=== PATIENT | female | born 1950 | race Caucasian/White ===

== ENCOUNTER 2019-02-05 16:57 | Inpatient (IN) ==
--- NOTE | 2019-02-05 18:41 | PROVIDER DOCUMENTATION ---
HPI-General Adult - General Chief Complaint: Nausea/Vomiting Stated Complaint: ABD PAIN Time Seen by Provider: 02/05/19 18:14 Source: patient, family Allergies/Adverse Reactions: Patient Allergies Allergy/AdvReac Type Severity Reaction Status Date / Time codeine Allergy Severe RASH Verified 02/05/19 20:48 latex Allergy Severe ANAPHYLAXIS Verified 02/05/19 20:48 Sulfa (Sulfonamide Allergy Severe RASH Verified 02/05/19 20:48 Antibiotics) cephalexin monohydrate * Allergy Mild RASH Verified 02/05/19 20:48 [From Keflex] Penicillins Allergy Mild breathing, Verified 02/05/19 20:48 rash Iodinated Contrast Media Allergy Unknown Unknown Verified 02/05/19 20:48 ciprofloxacin [From Cipro] Allergy RASH Verified 02/05/19 20:48 ciprofloxacin HCl * Allergy RASH Verified 02/05/19 20:48 [From Cipro] erythromycin base Allergy RASH Verified 02/05/19 20:48 [Erythromycin Base] Iodine and Iodide Containing Allergy ANAPHYLAXIS Verified 02/05/19 20:48 Produc Home Medications: Home Medication List Medication Instructions Recorded Confirmed Last Taken Type Albuterol [Albuterol Neb] 2.5 mg INH Q4H 07/31/13 02/05/19 02/05/19 History Levothyroxine [Synthroid] 100 microgm PO QAM 07/31/13 02/05/19 02/05/19 History Montelukast [Singulair] 10 mg PO QAM 07/31/13 02/05/19 09/27/13 12:26 History Potassium Chloride 20 meq PO QAM 07/31/13 02/05/19 09/27/13 12:27 History Omeprazole [Prilosec] 40 mg PO QAM 09/12/13 02/05/19 09/27/13 12:27 History Apixaban [Eliquis] 5 mg PO BID #60 tablet 09/16/13 02/05/19 02/05/19 Rx Nitroglycerin 0.4 mg SL DIRECTED #30 tab.subl 09/27/13 02/05/19 Unknown Rx Fluoxetine HCl [Prozac] 20 mg PO DAILY 01/16/18 02/05/19 02/05/19 History Mometasone/Formoterol [Dulera 200 2 puff IH BID 01/16/18 02/05/19 Unknown History Mcg/5 Mcg Inhaler] Tizanidine HCl 4 mg PO QHS 01/16/18 02/05/19 Unknown History Acyclovir 5% Ointment [Zovirax 5 gm TOP 5XDAY PRN 02/05/19 02/05/19 02/05/19 History Ointment] Acyclovir [Zovirax] 400 mg PO DAILY 02/05/19 02/05/19 02/05/19 History Furosemide [Lasix] 40 mg PO BID 02/05/19 02/05/19 02/05/19 History Hydrocodone/Acetaminophen 1 ea PO Q8H 02/05/19 02/05/19 02/05/19 History [Hydrocodone-Acetamin 7.5-325] Ipratropium Guild Neb [Atrovent 0.5 mg INH RTQ4H 02/05/19 02/05/19 02/05/19 History Neb] Lorazepam 0.5 mg PO BID 02/05/19 02/05/19 02/05/19 History Metoprolol Tartrate 50 mg PO BID 02/05/19 02/05/19 Unknown History Sucralfate 1 gm PO 4XDAY 02/05/19 02/05/19 02/05/19 History Trazodone HCl 150 mg PO QHS 02/05/19 02/05/19 Unknown History - History of Present Illness -Gen Adult Nature of Presenting Problems: 68yo female presents from nursing facility with CC of nausea, vomiting, chest pain, and abdominal pain. The patient reports that she has noted abdominal and chest pain for the last 10 days. The patient describes the pain as a pressure w ith occasional radiation from her abdomen to chest and left arm. The patient is not worse with exertion and is relived by her opioid medications. The patient last BM was 2 days ago. Location of Pain/Injury: reports: chest, abdomen Pain Radiation: reports: other (right arm) Quality of Pain: reports: pressure Onset/Duration: reports: other (several weeks) Timing: reports: still present Associated Symptoms: reports: nausea, vomiting Review of Systems - Adult - REVIEW OF SYSTEMS - ADULT Constitutional: denies: fever Eyes: reports: no symptoms reported. denies: eye pain Ears, Nose, Mouth & Throat: reports: no symptoms reported. denies: throat pain Cardiovascular: reports: chest pain Respiratory: denies: cough, shortness of breath Gastrointestinal: reports: abdominal pain, constipation Genitourinary: reports: no symptoms reported Musculoskeletal: reports: other (right arm pain) Integumentary: reports: no symptoms reported Neurological: reports: no symptoms reported Psychiatric: reports: no symptoms reported Endocrine: reports: no symptoms reported Hematologic/Lymphatic: reports: no symptoms reported, other (no bleeding) Allergic/Immunologic: reports: no symptoms reported Past History - Adult - PAST MEDICAL HISTORY-ADULT Review of Records: reports: Old Records Reviewed Major Childhood Illnesses: reports: denies history Cardiovascular: reports: A-Fib, HTN Respiratory: reports: asthma, COPD (2 lpnc) Gastrointestinal: reports: denies history Obstetrical/Gynecological: reports: denies history Genitourinary: reports: denies history Musculoskeletal: reports: denies history Neurological: reports: denies history Endocrine/Immune: reports: thyroid disorder (hypothyroid) Other Conditions: reports: denies history - PRIOR SURGERIES/PROCEDURES Surgical/Procedure History: reports: cholecystectomy, , other (knee, back) - PRIOR HOSPITALIZATIONS Prior Hospitalizations: reports: none - IMMUNIZATION STATUS Childhood Immunizations: See Nurse Assessment Flu Vaccine: See Nurse Assessment - FAMILY HISTORY Family History: reviewed, not pertinent Physical Exam-General - PHYSICAL EXAM-ADULT Initial Vital Signs Reviewed: Yes - CONSTITUTIONAL General Appearance: alert, no apparent distress, obese - EYES Eyes: negative: conjuctival exudate, photophobia - HEAD, EARS, NOSE, MOUTH & THROAT HENMT: normocephalic/atraumatic, moist mucous membranes - RESPIRATORY Respiratory: lungs clear, decreased breath sounds - CARDIOVASCULAR Cardiovascular: regular rate, rhythm, no edema - GASTROINTESTINAL (ABDOMEN) Abdominal Exam: soft, tenderness. negative: guarding - SKIN Integumentary: normal color, warm/dry - NEUROLOGIC Neurologic: grossly normal - PSYCHIATRIC Psych/Mental Status: normal mood/affect, normal thought content, normal thought process Progress - PLAN OF CARE/RESULTS Progress/Plan/Lab Results: Vital Signs - 8 hr 02/05/19 17:05 Temperature 98.2 F Pulse Rate 61 Respiratory Rate 20 Blood Pressure 147/64 O2 Sat by Pulse Oximetry 99 Result Diagrams: 02/05/19 19:25 02/05/19 19:25 - REASSESSMENT Reassessment #1 Status: other (Mild improvment in pain with nitropaste. Patient reports that pain is still present. Will check CT abdomen. Patient EKG without signs of STEMI.) Reassessment #2 Status: other (CT without signifcant finding. Possible lower lobe PNA, however patient without cough or fever or shortness of breath, so doubt PNA. Discussed with hospitalist team. We will admit patient due to her chest pressure and risk factors for ACS.) - EKG 1 EKG Read and Signed by:: Oren Elder EKG Interpretation (*Must complete 3 of following elements*): Normal Rate: 63 Rhythm: sinus [place]: normal QRS: normal OK Interval: normal ST Wave: normal Comments: No injury current noted. Departure - Departure Date of Disposition Decision: 02/05/19 Time of Disposition Decision: 23:30 DIAGNOSIS: Chest pain Qualifiers: Chest pain type: unspecified Qualified Code(s): R07.9 - Chest pain, unspecified Abdominal pain Qualifiers: Abdominal location: generalized Qualified Code(s): R10.84 - Generalized abdominal pain Disposition: ADMITTED INPATIENT 09 Certified Medical Emergency: Emergent Condition: Fair Referrals and Follow-Ups: Dariel Castellano III, MD [Primary Care Provider] - - Critical Care Note This patient required my direct & personal management of CC.: No Attestation - Physician/ JESUSITA Attestation Patient care was provided by Advanced Practice Provider:: No The physician spent face to face time with patient:: Yes Advanced Practice Provider documentation review:: Supervising physician onsite and consulted in the evaluation and care of this patient. The physician did have a face to face encounter with the patient. - HEART Score HEART Score: History: Slightly Suspicious HEART Score: ECG: Non-Specific Repolarization Disturbance/LBBB/PM HEART Score: Age: > or = 65 Years HEART Score: Risk Factors for Atherosclerotic Disease: > or = 3 Risk Factors or History of Atherosclerotic Disease HEART Score: Troponin: < or = Normal Limit Total HEART Score:: 5
[2019-02-05] MEDS ORDERED: ZOFRAN IV ONE (18:45)
[2019-02-05] MEDS ORDERED: NS 500 ML IV ONE (18:46)
--- NOTE | 2019-02-05 19:07 | Diag Imaging Result Doc PS360 ---
EXAM: KUB ABDOMEN INDICATION: abdominal pain TECHNIQUE: 2 views COMPARISON: None. FINDINGS: There are unremarkable bowel gas and stool patterns. There is no obstructive bowel pattern. There is no evidence of large volume free abdominal gas. There are multiple metallic clips in the abdomen, especially in the right mid abdomen and right upper quadrant. An IVC filter is noted. IMPRESSION: No evidence of acute pathology by plain radiograph. Electronically signed by Dariel Stevenson 02/05/2019 7:05 PM
--- NOTE | 2019-02-05 19:08 | Diag Imaging Result Doc PS360 ---
EXAM: CHEST-1 VIEW INDICATION: chest pain TECHNIQUE: One view COMPARISON: 01/16/2018 FINDINGS: There is no stable mild cardiomegaly. Pulmonary vasculature is near the upper limit of normal and stable. The lungs are grossly clear, otherwise. There is no discrete pleural fluid collection or pneumothorax. There is evidence of a stable small to moderate-sized hiatal hernia. IMPRESSION: Stable mild cardiomegaly. No definite acute pathology by plain radiograph. Electronically signed by Dariel Stevenson 02/05/2019 7:06 PM
[2019-02-05 19:42] LABS: BASO# 0.01 X1000 (0.0-0.2); BASO% 0.1 % (0.0-0.8); EOS# 0.08 X1000 (0.0-0.7); EOS% 0.6 % (0.0-10.0); HEMATOCRIT 39.2 % (37.0-47.0); HEMOGLOBIN 11.5 g/dL (12.0-16.0); IMM GRAN# 0.03 X1000 (0.0-0.04); IMM GRAN% 0.2 % (0.0-0.5); LYMPH# 1.58 X1000 (1.2-3.4); LYMPH% 12.4 % (20.5-51.1); MCH 23.2 PG (27-31); MCHC 29.3 g/dL (33-37); MONO# 1.35 X1000 (0.11-0.59); MONO% 10.6 % (1.7-9.3); MPV 9.8 FL (7.4-10.4); NEUT# 9.68 X1000 (1.4-6.5); NEUT% 76.1 % (42.2-75.2); PLT 355 X1000 (130-400); RBC 4.96 XMIL (4.2-5.4); RDW 18.5 % (11.5-14.5); WBC 12.73 X1000 (4.8-10.8)
[2019-02-05] MEDS ORDERED: NITROGLYCERIN TOP ONE (19:47)
[2019-02-05 20:12] LABS: ALB/GLOB RATIO 1.4; ALBUMIN 4.1 g/dL (3.5-5.0); CALCIUM 7.9 mg/dL (8.8-10.2); CREATININE 1.1 mg/dL (0.5-0.9); POTASSIUM 3.8 mmol/L (3.5-5.1); TOTAL BILIRUBIN 0.43 mg/dL (0.20-1.00)
[2019-02-05 20:16] LABS: URINE SOURCE CLEAN CATCH
[2019-02-05 20:32] LABS: UR EPITHELIAL CELLS <10 /HPF (<10); URINE BACTERIA NEGATIVE /HPF; URINE RBC <10 /HPF (<10); URINE WBC <10 /HPF (<10)
[2019-02-05 20:40] LABS: BILIRUBIN URINE SMALL (NEGATIVE); BLOOD URINE SMALL (NEGATIVE); COLOR YELLOW; GLUCOSE URINE NEGATIVE (NEGATIVE); KETONE URINE TRACE mg/dL (NEGATIVE); LEUKOCYTES URINE NEGATIVE (NEGATIVE); NITRITE URINE NEGATIVE (NEGATIVE); PROTEIN URINE 50 mg/dL (NEGATIVE); SP GRAVITY URINE 1.038; TURBIDITY URINE CLEAR (CLEAR); UROBILINOGEN URINE 2 mg/dL (NORMAL)
[2019-02-05] MEDS ORDERED: MORPHINE IV ONE (20:49)
--- NOTE | 2019-02-05 21:05 | EKG Report ---
Test Performed on : 02/05/2019 7:57:29 PM Test Reason : chest pressure Blood Pressure : / mmHG Vent. Rate : 063 BPM Atrial Rate : 063 BPM P-R Int : 182 ms QRS Dur : 076 ms QT Int : 454 ms P-R-T Axes : 068 075 072 degrees QTc Int : 464 ms Normal sinus rhythm. Cannot rule out Anterior infarct , age undetermined Abnormal ECG When compared with ECG of 27-SEP-2013 16:56, Non-specific change in ST segment in Lateral leads T wave inversion no longer evident in Inferior leads Unconfirmed Result
--- NOTE | 2019-02-05 21:32 | Diag Imaging Result Doc PS360 ---
EXAM: CT ABDOMEN/PELVIS W/O CONTRAST INDICATION: Abdominal Pain TECHNIQUE: This exam was performed using automated exposure control, adjustment of mA or kV according to patient size, and/or use of iterative reconstruction technique. COMPARISON: None. FINDINGS: There are small focal infiltrates involving the medial right middle lobe near the base and the right lower lobe. The common bile duct is dilated measuring up to 1.6 cm in diameter. The gallbladder is unremarkable. The liver and spleen are unremarkable. The pancreas is diffusely atrophic. It is grossly unremarkable, otherwise. The adrenal glands are unremarkable. There are no renal or ureteral stones and there is no hydronephrosis. The kidneys are unremarkable, otherwise. Urinary bladder is nondistended. Streak artifact related to body habitus somewhat obscures the pelvis. However, there is a 2.5 cm low dense left ovarian lesion that probably represents a cyst. Consider follow-up pelvic ultrasound. The reproductive tract is grossly unremarkable as imaged, otherwise. There is extensive uncomplicated descending and sigmoid colonic diverticulosis. There is no focal bowel wall thickening identified and no bowel obstruction. There is a moderate-sized hiatal hernia and evidence of prior gastric bypass. An IVC filter is in place. No focal inflammatory changes, free abdominal gas, or free fluid is appreciated. There are degenerative changes throughout the spine. There is no evidence of acute osseous abnormality. IMPRESSION: 1.A couple of airspace opacities in the right middle lobe and right lower lobe suggesting pneumonia. Please correlate clinically. 2.Dilated common bile duct. The gallbladder is unremarkable. 3.2.5 cm low dense left ovarian lesion that probably represents a cyst. Please see above discussion. 4.Uncomplicated diverticulosis coli. 5.No definite acute pathology, otherwise. Electronically signed by Dariel Stevenson 02/05/2019 9:30 PM
[2019-02-06] MEDS ORDERED: LEVAQUIN 750 MG/D5W 750 MG/150 ML IVPB IV ONE (00:12)
[2019-02-06] MEDS: ALBUTEROL NEB INH SCH ×6 (03:50→22:52)
[2019-02-06] MEDS: NORCO-7.5 PO SCH ×3 (04:12→21:37)
[2019-02-06] MEDS: LEVAQUIN 500 MG/D5W 500 MG/100 ML IVPB IV SCH (04:12)
--- NOTE | 2019-02-06 05:55 | HISTORY AND PHYSICAL ---
PRIMARY CARE PHYSICIAN: None. CHIEF COMPLAINT: Chest pain x10 days. HISTORY OF PRESENTING ILLNESS: A 68-year-old female with a history of COPD, asthma, hypertension, atrial fibrillation, sleep apnea, and hypothyroidism who was brought from [facility] due to patient having chest pain for the past 10 days or so. The patient states that it was intermittent, and she was having shortness of breath. She was evaluated in the emergency department. She had imaging done which did show possibility of pneumonia. Due to the fact that she was having a persistent chest pain, it was thought that she would need admission for further management. At the time of my examination, patient denied any headache, nausea, vomiting, diarrhea, hemoptysis, or melena, but complained of chest discomfort and shortness of breath. PAST MEDICAL HISTORY: Includes COPD, asthma, hypertension, atrial fibrillation, sleep apnea, and hypothyroidism. PAST SURGICAL HISTORY: Gastric bypass, back surgery, right knee surgery, and cholecystectomy. ALLERGIES: Erythromycin, iodine, IV contrast media, Cipro, codeine, penicillin and sulfa. CURRENT MEDICATIONS: 1. Acyclovir 400 mg p.o. daily. 2. Acyclovir ointment topical 5 times a day. 3. Albuterol nebs. 4. Eliquis 5 mg p.o. b.i.d. 5. Fluoxetine 20 mg p.o. daily. 6. Lasix 40 mg p.o. daily. 7. [place] 7.5 mg p.o. q.8 hours. 8. Levothyroxine 100 mcg p.o. every morning. 9. Lorazepam 0.5 mg p.o. b.i.d. 10. Metoprolol 50 mg p.o. b.i.d. 11. Singular 10 mg p.o. every morning. 12. Omeprazole 40 mg p.o. every morning. 13. Sucralfate 1 g p.o. q.i.d. 14. Trazodone 150 mg p.o. at bedtime. SOCIAL HISTORY: She denies any history of smoking, alcohol or illicit drug use. FAMILY HISTORY: Positive for coronary disease in father. REVIEW OF SYSTEMS: Fourteen point review of systems is as in HPI. Other systems negative. PHYSICAL EXAMINATION: GENERAL: Cooperative, friendly female. She is resting more comfortably now. VITAL SIGNS: Temperature 98.2 degrees, pulse 61, respirations 20, and blood pressure 147/64. HEENT: Atraumatic, normocephalic. Extraocular movements intact. PERRLA. NECK: No masses. CHEST: Bibasilar rales. CARDIOVASCULAR: Regular rate and rhythm. ABDOMEN: Soft, obese. Positive bowel sounds. EXTREMITIES: Trace edema. NEUROLOGIC: She is awake, alert, and oriented x3. : No bladder distention. SKIN: Warm. LABORATORIES AND STUDIES: WBC 12.73, hemoglobin 11.5, hematocrit 39.2 and platelets 355,000. Sodium 137, potassium 3.8, chloride 95, CO2 is 30, BUN is 15, creatinine is 1.1, and glucose is 118. CT of the abdomen and pelvis shows right middle lobe and right lower lobe pneumonia. ASSESSMENT: This is a 68-year-old female with a history of COPD, asthma, atrial fibrillation, sleep apnea and hypothyroidism, who had presented to the emergency department with 10 days history of having worsening chest discomfort and shortness of breath. She was evaluated in the emergency department. She had imaging done which did show the possibility of pneumonia. Subsequently, she will require admission for further management. 1. Suspected pneumonia. 2. Chest pain. 3. Atrial fibrillation. 4. Hypertension. PLAN: 1. We will admit patient to medical floor with telemetry. 2. We will check blood cultures. Start patient on IV antibiotics. 3. We will continue to trend troponins and consult Cardiology. 4. Monitor patient on telemetry and continue her anticoagulation. 5. Monitor blood pressure. Resume antihypertensive agents. 6. The patient is already on Eliquis, and this will suffice for DVT prophylaxis. 7. We will continue to follow and reassess. Make further recommendations based on patient's clinical course. cc: Orlin Holguin MD
[2019-02-06 06:31] LABS: BASO# 0.01 X1000 (0.0-0.2); BASO% 0.1 % (0.0-0.8); EOS# 0.05 X1000 (0.0-0.7); EOS% 0.5 % (0.0-10.0); HEMATOCRIT 39.8 % (37.0-47.0); HEMOGLOBIN 11.8 g/dL (12.0-16.0); IMM GRAN# 0.02 X1000 (0.0-0.04); IMM GRAN% 0.2 % (0.0-0.5); LYMPH# 0.99 X1000 (1.2-3.4); MCH 23.6 PG (27-31); MCHC 29.6 g/dL (33-37); MCV 79.4 FL (81-99); MONO# 1.08 X1000 (0.11-0.59); MONO% 9.8 % (1.7-9.3); MPV 10.1 FL (7.4-10.4); NEUT# 8.87 X1000 (1.4-6.5); NEUT% 80.4 % (42.2-75.2); PLT 319 X1000 (130-400); RBC 5.01 XMIL (4.2-5.4); RDW 18.4 % (11.5-14.5); WBC 11.02 X1000 (4.8-10.8)
[2019-02-06] MEDS: SYNTHROID PO SCH (06:35)
[2019-02-06 06:52] LABS: AGAP 11; BUN 14 mg/dL (8-22); CALCIUM 8.7 mg/dL (8.8-10.2); CHLORIDE 95 mmol/L (98-107); COSMO 266; CREATININE 0.9 mg/dL (0.5-0.9); ESTIMATED GFR > 60; GLUCOSE 120 mg/dL (70-104); SODIUM 132 mmol/L (136-145); TCO2 26 mmol/L (25-35)
[2019-02-06] MEDS: PRILOSEC PO SCH (08:27)
[2019-02-06] MEDS: LASIX PO SCH ×2 (08:27→21:37)
[2019-02-06] MEDS: ATIVAN PO SCH ×2 (08:27→21:38)
[2019-02-06] MEDS: LOPRESSOR PO SCH ×2 (08:27→21:37)
[2019-02-06] MEDS: PROZAC PO SCH (08:28)
[2019-02-06] MEDS: ZOVIRAX PO SCH (08:28)
[2019-02-06] MEDS: ELIQUIS PO SCH ×2 (08:28→21:37)
[2019-02-06] MEDS: SINGULAIR PO SCH (08:28)
[2019-02-06] MEDS: CARAFATE PO SCH ×4 (08:28→21:38)
--- NOTE | 2019-02-06 11:07 | EKG Report ---
Test Performed on : 02/06/2019 11:03:20 AM Test Reason : chest pain Blood Pressure : / mmHG Vent. Rate : 106 BPM Atrial Rate : 125 BPM P-R Int : 000 ms QRS Dur : 072 ms QT Int : 370 ms P-R-T Axes : 000 071 013 degrees QTc Int : 491 ms Atrial fibrillation. with rapid ventricular response. Abnormal ECG When compared with ECG of 05-FEB-2019 19:57, (Unconfirmed) Atrial fibrillation. has replaced Sinus rhythm. Vent. rate has increased BY 43 BPM T wave inversion now evident in Inferior leads Confirmed by Ryan Azul MD ([id number]) on 02/07/2019 7:31:55 AM
--- NOTE | 2019-02-06 11:32 | Diag Imaging Result Doc PS360 ---
CT THORAX W/O CONTRAST - 02/06/2019 INDICATION: suspected pneumonia COMPARISON: Chest x-ray 02/05/2019 FINDINGS: There is mild cardiomegaly. There is a hiatal hernia. There are surgical changes to the stomach. No pneumothorax or pleural effusion. There is mild diffuse mediastinal lymphadenopathy that is nonspecific. Large calcified granulomas in the AP window. There is mild diffuse hazy groundglass interstitial opacity suggesting pulmonary edema. There are couple of coarse opacities in the midlungs bilaterally most likely atelectasis. Small infiltrate in the anterior right middle lobe is either atelectasis or pneumonia. There are moderate degenerative changes of the spine. No acute or suspicious bony lesion. IMPRESSION: Cardiomegaly and trace interstitial pulmonary edema. Scattered atelectasis. Atelectasis versus bronchopneumonia in the right middle lobe. This exam was performed using automated exposure control, adjustment of mA or kV according to patient size, and/or use of iterative reconstruction technique Electronically signed by Skip Parisi 02/06/2019 11:29 AM
--- NOTE | 2019-02-06 12:12 | CARDIOLOGY CONSULTATION ---
DATE: 02/06/2019 REQUESTING PHYSICIAN: Hospitalist Service. REASON FOR CONSULTATION: Chest pain. HISTORY: Mrs. 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 The patient said that her pain seems to start after eating within 10 minutes. It hurts in the front of the chest intensely, and then it seems to move through into the back. She feels like a "tight bra" around. This pain has been intermittent, however it has not completely subsided. She says that it seems to be made somewhat better by taking a muscle relaxant and a narcotic. The patient denies having any dizziness or shortness of breath. She has some palpitations. PAST MEDICAL HISTORY: Positive for paroxysmal atrial fibrillation. She has had this for years, and she follows with Dr. Jorge Luis Dimas offset platemaker in [place]. Recently, she saw Dr. Kole Bartlett in [place] who did not recommend ablation nor pacemaker. He only advised her to pursue medical therapy. The patient has been morbidly obese for many years. She reached a weight of 370 pounds, and eventually underwent gastric bypass and lost she says 170 pounds, but lately she has gained weight progressively. She was admitted to a skilled nursing about a year ago because she was very weak, and she could not take care of herself at home. She has a twin sister, a fraternal twin who is in the room with her, who had been caring for her for many years. The patient has a history of hypertension and hypothyroidism. She has had asthma in the past. She has chronic back pain, and chronic pain in the joints, especially the knees. PAST SURGICAL HISTORY: Includes gastric bypass in 2012. She has also had partial knee surgery on the right knee. She has had . She has had cholecystectomy.Several Back Surgeries. SOCIAL HISTORY: She is a . She is also from the second . She has 1 child who is a son 34 years old who in turn has 4 children. He cannot participate in the care of the mother. Not a smoker nor drinker. She has held multiple jobs in the past. However, she had to retire on disability at the age of 45. FAMILY HISTORY: Really non contributory for heart disease. HOME MEDICATIONS: detention medications list included apixaban Eliquis 5 mg twice a day, Prozac 20 mg daily, furosemide 40 twice a day, hydrocodone/acetaminophen 7.5/325 every 8 hours, levothyroxine 100 mcg daily, lorazepam 0.5 mg twice a day, metoprolol 50 twice a day, montelukast 10 mg in the morning, nitroglycerin sublingual as needed, omeprazole 40 mg in the morning, potassium chloride 20 mEq in the morning, sucralfate 1 g 4 times a day, Tizanidine 4 mg at bedtime, trazodone 150 mg at bedtime. She also takes acyclovir 400 mg daily, albuterol inhaler, ipratropium inhaler, and mometasone formoterol, Dulera 200 mcg/5 mcg inhaler 2 puffs twice a day. ALLERGIES: Latex, codeine, sulfa drugs, cephalexin, iodine contrast, ciprofloxacin and erythromycin. REVIEW OF SYSTEMS: The patient has significant impairment to perform physical activities. She spends most of the time sitting or lying down in bed. She does have a sleep apnea syndrome, and she has been using CPAP mask. She does have a history of having esophageal ulcers related to the gastric bypass. She also has constipation, and has been told that she was impacted recently. No other positives. PHYSICAL EXAMINATION: Vital Signs: Blood pressure 143/61, temperature 98 degrees, pulse 97, respirations 16. She is awake, obese, and in no distress. HEENT: Normal. Chest: Clear to auscultation and percussion. Heart: Sounds are irregularly irregular. No gallop or murmur. Abdomen: Quite obese and nontender. Extremities: Good distal pulses. No edema. She has tremendous subcutaneous pannus everywhere. Neurological: Exam follows commands and moves all 4 extremities. LABORATORY: Her blood work this morning, white cell count 11,020, hemoglobin 11.8 g percent, and hematocrit 39.8%. Sodium 132, potassium 4.0, BUN 14, creatinine 0.9, chloride 95, carbon dioxide 26, and TSH 0.32. IMPRESSION: 1. Patient presented with chest pain. This chest pains really sounds quite atypical. This does not sound like ischemic heart pain. Her EKG done at 7:57 on 02/05 shows sinus rhythm with no ischemic STT changes. They have only done a couple of troponins. They are negative. 2. History of gastric bypass. Pain is suspected to represent esophageal dysfunction or ulcer. 3. Morbid obesity. 4. Sleep apnea syndrome. 5. History of paroxysmal atrial fibrillation. 6. History of hypertension. 7. History of back arthritis and knee arthritis. She is status post several back surgeries. RECOMMENDATIONS: At this time, we will obtain an echocardiogram. We will do a resting gated myocardial perfusion study. I would do CT of thorax looking for coronary calcification. If those tests are normal, we will really need to get a hatchery attendant here to help figure out what is going on with her esophagus. We will furnish additional advice. cc: Luis Naranjo MD MTDD
--- NOTE | 2019-02-06 18:16 | ECHO REPORT ---
ORDER DATE: 02/06/2019 SUMMARY: 1. Limited 2 dimensional echocardiography performed. Study is technically difficult due to limited acoustic window quality. Intravenous echo contrast agent Optison was utilized in an effort to enhance endocardial definition. 2. Normal left ventricular dimensions suggested. The estimated left ventricular ejection fraction appears to be at least 65%. No obvious regional wall motion abnormalities are evident. CONCLUSIONS: 1. Technically difficult study. 2. Estimated left ventricular ejection fraction at least 65% without obvious wall motion abnormality. cc: MD Carie Goemz PA
[2019-02-06] MEDS: DESYREL PO SCH (21:37)
[2019-02-07] MEDS: LEVAQUIN 500 MG/D5W 500 MG/100 ML IVPB IV SCH (01:29)
[2019-02-07] MEDS: ALBUTEROL NEB INH SCH ×3 (03:35→11:39)
[2019-02-07] MEDS: NORCO-7.5 PO SCH ×4 (05:03→22:31)
[2019-02-07] MEDS: SYNTHROID PO SCH (06:31)
[2019-02-07] MEDS ORDERED: LEXISCAN ONE (09:06)
[2019-02-07] MEDS: PRILOSEC PO SCH (11:00)
[2019-02-07] MEDS: CARAFATE PO SCH ×4 (11:01→22:13)
[2019-02-07] MEDS: ELIQUIS PO SCH ×2 (11:01→22:14)
[2019-02-07] MEDS: LASIX PO SCH ×2 (11:01→22:18)
[2019-02-07] MEDS: PROZAC PO SCH (11:01)
[2019-02-07] MEDS: SINGULAIR PO SCH (11:01)
[2019-02-07] MEDS: ZOVIRAX PO SCH (11:01)
[2019-02-07] MEDS: ATIVAN PO SCH ×2 (11:01→22:19)
[2019-02-07] MEDS: LOPRESSOR PO SCH ×2 (11:01→22:16)
[2019-02-07 12:24] LABS: BASO# 0.01 X1000 (0.0-0.2); BASO% 0.1 % (0.0-0.8); EOS# 0.07 X1000 (0.0-0.7); EOS% 0.5 % (0.0-10.0); HEMATOCRIT 44.1 % (37.0-47.0); HEMOGLOBIN 13.3 g/dL (12.0-16.0); IMM GRAN# 0.04 X1000 (0.0-0.04); IMM GRAN% 0.3 % (0.0-0.5); LYMPH# 0.98 X1000 (1.2-3.4); LYMPH% 7.3 % (20.5-51.1); MCH 23.5 PG (27-31); MCHC 30.2 g/dL (33-37); MCV 78.1 FL (81-99); MONO# 1.47 X1000 (0.11-0.59); MPV 9.9 FL (7.4-10.4); NEUT# 10.81 X1000 (1.4-6.5); NEUT% 80.8 % (42.2-75.2); PLT 366 X1000 (130-400); RBC 5.65 XMIL (4.2-5.4); RDW 18.4 % (11.5-14.5); WBC 13.38 X1000 (4.8-10.8)
[2019-02-07 12:41] LABS: AGAP 13; BUN 9 mg/dL (8-22); CALCIUM 8.5 mg/dL (8.8-10.2); CHLORIDE 96 mmol/L (98-107); COSMO 270; CREATININE 0.8 mg/dL (0.5-0.9); ESTIMATED GFR > 60; GLUCOSE 112 mg/dL (70-104); SODIUM 135 mmol/L (136-145); TCO2 26 mmol/L (25-35)
[2019-02-07] MEDS ORDERED: NS NEB INH SCH (13:15)
[2019-02-07] MEDS: ZANAFLEX PO SCH ×2 (13:20→16:26)
--- NOTE | 2019-02-07 14:15 | PROGRESS NOTE ---
DATE: 02/07/2019 SUBJECTIVE: The patient reports feeling fine. Reports mild epigastric pain. No nausea or vomiting at this time. OBJECTIVE: Vital Signs: Temperature 98.0 degrees, heart rate 82, respiratory rate 20, blood pressure 157/90, O2 saturation 98% on 2 L nasal cannula. General: This is a morbidly obese, 68- year-old, female, lying in bed in no acute distress. Cardiovascular: S1, S2 heard. No murmurs, gallops, or rubs. Regular rate and rhythm. Respiratory: Clear bilaterally to auscultation with minimal rales in both bases. The patient is not using any accessory muscles or having work of breathing. Abdomen: Soft. Mildly tender to palpation in the epigastric area. No signs of rebound. Neurologic: The patient is alert and oriented x3. Moves all 4 extremities. IMAGING AND LABORATORY DATA: White cell count 13.38, hemoglobin 13.3, platelets 366,000. Normal BMP. CT of the chest showed bronchopneumonia of the right middle lobe. Echocardiogram, limited views, showed left ventricular ejection fraction of 65%. No obvious wall motion abnormality. ASSESSMENT: 1. Chest pain. Cardiology has evaluated this patient, and they have ordered a Lexiscan and an echocardiogram. If Lexiscan is okay, they recommend Gastroenterology evaluation for this epigastric pain. 2. Right lower lobe bronchopneumonia. Will continue with antibiotics, in this case levofloxacin. 3. Atrial fibrillation. Rate controlled. Will continue to monitor. 4. Epigastric pain. The patient has been seen by Gastroenterology doctor before, Dr. Valentino. Will consult Gastroenterology and see what they think. 5. Hypertension. Blood pressure is under control. Will continue with the same management. cc: Misbah Page MD
[2019-02-07] MEDS: XOPENEX NEB INH SCH ×3 (15:49→23:10)
--- NOTE | 2019-02-07 16:32 | Diag Imaging Result Document ---
PROCEDURE NAME: MYOCARDIAL PERF SCAN, STR/REST - 02/06/2019 STUDY: Rest/stress Lexiscan myocardial perfusion study. INDICATION: Chest pain. DESCRIPTION: The patient came into the nuclear laboratory on 02/06/2019, received resting injection of technetium 99 sestamibi 45.8 mCi. Multiple tomographic views of the cardiac structures were obtained at rest. Subsequently, a Lexiscan stress test was done on 02/07/2019. At that time, she received an injection of technetium 99 sestamibi 42.3 mCi after 0.4 mg of Lexiscan. Multiple views of the heart were obtained following the completion of the Lexiscan protocol. SUMMARY OF THE ELECTROCARDIOGRAPHIC PORTION OF THE STUDY: Resting ECG shows atrial fibrillation, resting rate is 132 beats per minute. Rapid response is noted. There is diffuse nonspecific T wave flattening. During the protocol, the heart rate increased to 150 beats per minute. Blood pressure went up to 150/95. The ECG showed no significant changes. Following the completion of the test, the heart rate and blood pressure returned back to their baseline. In summary, the electrocardiographic response to infusion of Lexiscan is negative for ischemia. The patient has atrial fibrillation with rapid response. SUMMARY OF THE MYOCARDIAL PERFUSION PORTION OF THE STUDY: Poststress tomographic views of the left ventricle showed a relatively mild and focal basal inferolateral defect. The rest images suggest reversibility of this defect. Polar plots reveal the same. This is questionable inducible ischemia of the basal inferolateral portion of the left ventricle. The review of the rotating/raw images showed there is a large amount of soft tissue shadowing the cardiac silhouette, both on the stress and on the rest images. The attenuation appears to be somewhat different between both. The aforementioned finding is very consistent with shifting breast attenuation artifact. Gated SPECT on the rest images showed ejection fraction of 71%, poststress is the same, 71%. Using the alternative protocol, resting ejection fraction is 66% and poststress 74%. Lung/heart ratio is normal. TID is normal. SUMMARY: This study shows: 1. Abnormal resting electrocardiogram with atrial fibrillation with rapid response. 2. Borderline abnormal poststress myocardial perfusion scan. There is scintigraphic suggestion of very trivial degree of inducible ischemia in the basal inferolateral portion of the left ventricle. This is very suspicious to represent shifting breast attenuation artifact. 3. Preserved left ventricular systolic function with ejection fraction of 71%. Normal ventricular volumes. No wall motion abnormality. Clinical correlation is recommended. cc: Luis Naranjo MD
[2019-02-07] MEDS: CARDIZEM PO SCH ×2 (17:18→22:18)
[2019-02-07] MEDS: DESYREL PO SCH (22:18)
[2019-02-08] MEDS: LEVAQUIN 500 MG/D5W 500 MG/100 ML IVPB IV SCH (03:30)
[2019-02-08] MEDS: XOPENEX NEB INH SCH ×6 (03:34→23:50)
[2019-02-08] MEDS: CARDIZEM PO SCH ×3 (04:36→21:47)
[2019-02-08] MEDS: NORCO-7.5 PO SCH ×4 (04:38→21:44)
[2019-02-08] MEDS: SYNTHROID PO SCH (06:02)
[2019-02-08 07:26] LABS: BASO# 0.01 X1000 (0.0-0.2); BASO% 0.1 % (0.0-0.8); EOS# 0.31 X1000 (0.0-0.7); EOS% 3.1 % (0.0-10.0); HEMATOCRIT 40.9 % (37.0-47.0); HEMOGLOBIN 12.2 g/dL (12.0-16.0); IMM GRAN# 0.02 X1000 (0.0-0.04); IMM GRAN% 0.2 % (0.0-0.5); LYMPH% 16.7 % (20.5-51.1); MCH 23.6 PG (27-31); MCHC 29.8 g/dL (33-37); MONO# 1.39 X1000 (0.11-0.59); MONO% 13.7 % (1.7-9.3); MPV 10.4 FL (7.4-10.4); NEUT# 6.72 X1000 (1.4-6.5); NEUT% 66.2 % (42.2-75.2); PLT 328 X1000 (130-400); RBC 5.18 XMIL (4.2-5.4); RDW 18.6 % (11.5-14.5); WBC 10.15 X1000 (4.8-10.8)
[2019-02-08 08:23] LABS: CALCIUM 8.6 mg/dL (8.8-10.2); CREATININE 1.2 mg/dL (0.5-0.9); POTASSIUM 3.8 mmol/L (3.5-5.1)
[2019-02-08] MEDS ORDERED: MIRALAX PO SCH (09:15)
[2019-02-08] MEDS: PRILOSEC PO SCH (09:55)
[2019-02-08] MEDS: SINGULAIR PO SCH (09:55)
[2019-02-08] MEDS: LOPRESSOR PO SCH ×3 (09:55→21:50)
[2019-02-08] MEDS: LASIX PO SCH ×2 (09:56→21:47)
[2019-02-08] MEDS: ZOVIRAX PO SCH (09:56)
[2019-02-08] MEDS: ELIQUIS PO SCH ×2 (09:56→21:48)
[2019-02-08] MEDS: ZANAFLEX PO SCH ×3 (09:56→18:09)
[2019-02-08] MEDS: PROZAC PO SCH (09:56)
[2019-02-08] MEDS: CARAFATE PO SCH ×4 (09:56→21:46)
--- NOTE | 2019-02-08 10:03 | CARDIOLOGY PROGRESS NOTE ---
DATE: 02/08/2019 CHIEF COMPLAINT: Chest pain. SUBJECTIVE: Mrs. Lucero is doing somewhat better. Yesterday we noted that she was in atrial fibrillation with a rapid response. We added Cardizem at a dose of 60 mg every 8 hours to control the rate. The rate is still going somewhat fast. She is feeling generally better. OBJECTIVE: Vital signs: Temperature 98 degrees, pulse 83, respirations 19, blood pressure 134/59. General: She is awake, alert, in no distress. HEENT: Unremarkable. Chest: Clear to auscultation and percussion. Heart: Sounds irregularly irregular without gallop or murmur. Abdomen: Obese. Extremities: Showed no significant edema. Neurologic exam: Follows commands, moves all 4 extremities. BLOOD WORK: From yesterday showed sodium 135, potassium 4.0, BUN 9, creatinine 0.8. IMPRESSION: 1. Patient with paroxysmal/probably permanent atrial fibrillation. 2. Morbid obesity. 3. Chest pain more than likely noncardiac. Myocardial perfusion stress test was done yesterday and it shows no evidence of any significant degree of ischemia. There is inferolateral rim of minimal reversibility that in my opinion represents shift in soft tissue attenuation artifact. The patient really is morbidly obese. The echocardiogram showed preserved ejection fraction. 4. The patient has a history of gastric bypass and sleep apnea syndrome. RECOMMENDATIONS: At this time, I would suggest to focus on optimizing her heart rate. We will probably switch over the Cardizem long-acting CD 300 mg once a day and switch the metoprolol tartrate from 50 twice a day to perhaps Toprol XL 200 mg once a day and see how she does with that. The heart rate really needs to be controlled for the patient to feel well. I would suggest to observe her 1 more night in the hospital and maybe she can be discharged home. cc: Luis Naranjo MD
[2019-02-08] MEDS: ATIVAN PO SCH ×2 (10:05→21:47)
--- NOTE | 2019-02-08 11:48 | PROGRESS NOTE ---
DATE: 02/08/2019 SUBJECTIVE: The patient reports still not feeling completely good, and requests to be kept in the hospital one more day. OBJECTIVE: Vital Signs: Temperature 97.9 degrees, heart rate 94, respiratory rate 14, blood pressure 133/46, O2 saturation 97% on 2 L nasal cannula. General: This is a morbidly obese, 68- year-old, female, lying in bed in no acute distress. Cardiovascular: S1, S2 heard. No murmurs, gallops, or rubs. Regular rate and rhythm. Tachycardic. Respiratory: Decreased breath sounds globally. Minimal rales in both bases. The patient is not using any accessory muscles or having work of breathing. Abdomen: Soft. Mildly tender to palpation in the epigastric area, but there are no signs of rebound or peritoneal irritation. Neurological: The patient is alert and oriented x3. Moves all 4 extremities. LABORATORY DATA: Reviewed. ASSESSMENT AND PLAN: 1. Right lower lobe pneumonia. Will continue with levofloxacin. The patient is stable. Will continue to monitor. 2. Chest pain. The patient has been evaluated by Cardiology, and apparently his tests returned normal. They recommend to keep this patient one more day in the hospital because her heart rate has been getting higher because of the breathing treatments. We have changed the breathing treatment to Xopenex, and will see how she does. 3. Atrial fibrillation. Rate is controlled. Will continue to monitor. 4. Epigastric pain. The patient has been evaluated by Gastroenterology. Will see if they decide to perform any procedure, like endoscopy or colonoscopy here or as an outpatient. Will follow recommendations. 5. Hypertension. Blood pressure is under control. Will continue with the same management. 6. Disposition. This patient is feeling better. Heart rate is better controlled. No procedure needed from Gastroenterology. I think this patient will be discharged. cc: Misbah Page MD
--- NOTE | 2019-02-08 13:01 | GASTROENTEROLOGY CONSULTATION ---
DATE: 02/08/2019 REASON FOR CONSULTATION: Epigastric pain. HISTORY OF PRESENT ILLNESS: Ms Lucero is a 68-year-old female with the history of COPD, asthma, hypertension, atrial fibrillation, and congestive heart failure. She is a resident of the custodial at [facility]. The patient was admitted to the hospital on 06 February with complaints of severe epigastric pain and she said that this pain was going on for the last 14 days onwards. Her emesis was clear and at times thick with greenish yellow color. She was not able to eat or drink anything, was nauseated and throwing up. She has denied noticing any blood in her emesis, denied SOB, chills or fever. She described her abdominal pain as stabbing, squeezing, and radiating to her back and right shoulder, rated it as 10/10. Since January 15 she has lost approximately 10 pounds. The patient did mention that she had a gastric bypass in 2002 where she had lost approximately 160 pounds. She uses a walker to walk due to shortness of breath, uses 2 L nasal cannula when she is sleeping and 3 L nasal cannula when she is walking. Currently she is feeling okay, she is trying to eat but on and off, she feels nauseated. PAST MEDICAL HISTORY: Hypertension, congestive heart failure, COPD, asthma, atrial fibrillation, hypothyroid. PAST SURGICAL HISTORY: She has had gallbladder surgery, section, gastric bypass, partial knee replacement of her right knee, left wrist surgery and 3 back surgeries. ALLERGIES: The patient is allergic to Keflex, codeine, latex, sulfa, penicillin, IV contrast and Cipro. SOCIAL HISTORY: She is single. She has 1 child. She has denied smoking or drinking alcohol or having any illicit drug use. She resides at the custodial. FAMILY HISTORY: Mother had breast cancer, father had heart disease, and brother has atrial fibrillation. HOME MEDICATIONS: 1. Albuterol 2.5 mg inhaler q.4 hours. 2. Singular 10 mg daily a.m. 3. Potassium chloride 20 mEq daily p.o. at a.m. 4. Synthroid 100 mcg p.o. at a.m. 5. Prilosec 40 mg p.o. a.m. 6. Eliquis 5 mg twice a day. 7. Nitroglycerin 0.4 mg sublingual as needed. 8. Tizanidine 4 mg at bedtime. 9. Prozac 20 mg daily. 10. Dulera 200 mcg/5 mcg inhaler 2 puffs twice a day. 11. Zovirax ointment 5 mg topical 5 times a day as needed. 12. Zovirax 400 mg daily. 13. Hydrocodone/acetaminophen 7.5/325 mg 1 tablet every 8 hours. 14. Atrovent nebulizer 0.5 mg inhaler every 4 hours. 15. Carafate 1 g p.o. 4 times a day. 16. Trazodone 50 mg at bedtime. 17. Metoprolol tartrate 50 mg twice a day. 18. Lorazepam 0.5 mg twice a day. 19. Lasix 40 mg twice a day. REVIEW OF SYSTEMS: As per HPI. Otherwise, 12 point review of system is negative. PHYSICAL EXAMINATION: Vital Signs: 97.9 temperature, pulse 95, respirations 14, blood pressure 136/46, oxygen saturation is 97% on 3 L nasal cannula. Patient's weight is 283 pounds. BMI is 55.5 kg/m2. General: She is morbidly obese. She is answering questions appropriately. Alert, oriented x3 and in no acute distress. HEENT: Pale conjunctivae. No icterus. PERRL. Neck: Supple. Lungs: Wheezing heard in the anterior lower lobes. Cardiovascular: Patient is tachycardic. Abdomen: Soft, obese, distended. Tender in the epigastric area. No rebound tenderness or guarding noted. Extremities: No clubbing, no cyanosis. Generalized edema noted in the lower extremities. Neurological: Alert, oriented x3. Nonfocal. Cranial nerves 2-12 grossly intact. LABORATORY DATA: WBCs 10.15, RBC 5.18, hemoglobin 12.2, hematocrit 40.9, platelet count is 328,000. Sodium 135, potassium 3.8, chloride 94, carbon dioxide is 27, anion gap 14, BUN 15, creatinine 1.2, glucose 100, calcium 8.6. Troponin less than 0.010. IMAGING: A myocardial perfusion scan was done on 02/06/2019. The patient's ejection fraction is 71%. CT of the chest on 02/06/2019 showed cardiomegaly and trace interstitial pulmonary edema, scattered atelectasis versus bronchopneumonia on the right middle lobe. Abdominal CT and pelvis on 02/05/2019 showed a couple of airspace opacities in the right middle lobe and right lower lobe suggesting pneumonia. Dilated common bile duct. The gallbladder is unremarkable. Low-dense left ovarian lesion representing a cyst. Uncomplicated diverticulosis coli. IMPRESSION AND PLAN: 1. Epigastric pain. 2 Nausea/Vomiting 3. Atrial fibrillation. 4. Hypertension. 5. Chest pain 6. Pneumonia 7. Hx of gastric bypass 8. Constipation 9. Obesity. PLAN: We will do an EGD tomorrow to find out the cause of her epigastric pain, N/V. The patient is currently on antibiotic Levaquin for her pneumonia. She is receiving Carafate and Prilosec 40 mg. She is on bowel regimen, MiraLAX 17 g daily and Dulcolax 10 mg suppository daily. Antiemetic Zofran for nausea and vomiting. Patient's stress was normal. Further plan of care will be based on the EGD findings. Discussed the risks, benefits and alternatives of the procedure, patient acknowledges understanding of the plan of care. We will continue to monitor the patient, and follow the plan of care per PCP. This plan was discussed with Dr. Akins. Thank you for your consult. Please call us for any further questions or concerns. Dictated by NAILA Yost for Harry Akins MD cc: Harry Akins MD I have seen and examined the patient myself. I agree with the above plan of care. The above plan of care was discussed with the patient and all questions were answered. Please call us with any further questions. [facility]
[2019-02-08] MEDS: ZOFRAN IV PRN ×2 (14:21→17:43)
[2019-02-08] MEDS ORDERED: DULCOLAX PR SCH (21:00)
[2019-02-08] MEDS: MIRALAX PO SCH (21:45)
[2019-02-08] MEDS: DESYREL PO SCH (21:48)
[2019-02-09] MEDS: LEVAQUIN 500 MG/D5W 500 MG/100 ML IVPB IV SCH (01:53)
[2019-02-09] MEDS: ZOFRAN IV PRN (04:15)
[2019-02-09] MEDS: XOPENEX NEB INH SCH ×3 (04:22→11:37)
[2019-02-09] MEDS: NORCO-7.5 PO SCH ×3 (04:24→15:16)
[2019-02-09] MEDS: CARDIZEM PO SCH ×2 (04:25→12:51)
[2019-02-09] MEDS: SYNTHROID PO SCH (06:01)
[2019-02-09] MEDS: CARAFATE PO SCH ×2 (08:29→12:51)
[2019-02-09] MEDS: MIRALAX PO SCH (08:30)
[2019-02-09] MEDS: ZANAFLEX PO SCH ×2 (08:30→12:51)
[2019-02-09] MEDS: PRILOSEC PO SCH (08:30)
--- NOTE | 2019-02-09 10:36 | ENDOSCOPY OPERATIVE NOTE ---
[facility] ENDOSCOPY OPERATIVE NOTE , PATIENT: Alexsandra Lucero ADMISSION DATE: 02/09/2019 MR#: [id number] : 1950 EGD PROCEDURE REPORT PROCEDURE DATE: 02/09/2019 SURGEON: Jesse Mcmullen MD STATUS: inpatient FLAP CURER: PREOPERATIVE DIAGNOSIS: The patient is a 68 yr old female here for an EGD due to nausea and vomiting . PROCEDURE PERFORMED: EGD, diagnostic MEDICATIONS: Per Anesthesia TOPICAL ANESTHETIC: none CONSENT: The patient understands the risks and benefits of the procedure and understands that these r isks include, but are not limited to: sedation, allergic reaction, infection, perforation and/or bleeding. Alternative means of evaluation and treatment include, among others: physical exam, x-rays, and/or surgical intervention. The patient elects to proceed with this endoscopic procedure. HISORY AND PHYSICAL: 02/09/2019 DESCRIPTION OF PROCEDURE: During intra-op preparation period all mechanical and medical equipment was checked for proper function. Hand hygiene and appropriate measures for infection prevention was taken. After the risks, benefits and alternatives of the procedure were thoroughly explained, Informed consent was verified, confirmed and timeout was successfully executed by the treatment team. The patient was anesthetized with topical anesthesia and the TV46-p99 ([id number]) endoscope was introduced through the mouth and advanced to the proximal jejunum. Retroflex ion was performed in the stomach and revealed no abnormalities. The gastroscope was then slowly withdrawn and removed. ESOPHAGUS: Normal RYGB anatomy. SPECIMENS REMOVED: No ADVERSE EVENTS: There were no complications. POSTOPERATIVE DIAGNOSIS: Normal RYGB anatomy RECOMMENDATIONS: Advance diet as tolerated Recommend once daily PPI therapy PO Continue antiemetics prn Please call with questions Follow-up with Dr. Akins upon discharge in 2-4 weeks REPEAT EXAM: Jesse Mcmullen MD eSigned: Jesse Mcmullen MD 02/09/2019 10:36 AM cc: PATIENT NAME: Alexsandra Lucero MR#: [id number]
[2019-02-09] MEDS: ELIQUIS PO SCH (11:00)
[2019-02-09] MEDS: ATIVAN PO SCH (11:00)
[2019-02-09] MEDS: LOPRESSOR PO SCH (11:01)
[2019-02-09] MEDS: SINGULAIR PO SCH (11:01)
[2019-02-09] MEDS: PROZAC PO SCH (11:01)
[2019-02-09] MEDS: LASIX PO SCH (11:01)
[2019-02-09] MEDS ORDERED: DIPRIVAN 1% ONE (11:24)
[2019-02-09 12:02] VITALS: BP 115/43
[2019-02-09] MEDS: ZOVIRAX PO SCH (12:51)
--- NOTE | 2019-02-09 14:08 | DISCHARGE SUMMARY ---
ADMISSION DATE: 02/06/2019 DISCHARGE DATE: PRIMARY CARE PROVIDER: None. CONSULTATIONS: 1. Dr. Naranjo of Cardiology. 2. Dr. Akins with Gastroenterology. PERTINENT PROCEDURES: 1. Abdomen and pelvis CT. A couple of airspace opacities in the right middle lobe and right lower lobe suggesting pneumonia. Dilated common bile duct. Gallbladder is unremarkable. 2.5 cm low-dense left ovarian lesion probably represents a cyst. Uncomplicated diverticulosis coli. 2. Chest CT cardiomegaly and trace interstitial pulmonary edema. Scattered atelectasis versus bronchopneumonia in the right middle lobe. 3. Myocardial perfusion scan was borderline abnormal post-stress myocardial perfusion scan. Suggestion of trivial degree of inducible ischemia in the basal inferior lateral portion of the left ventricle. This is very suspicious to represent shifting breast attenuation artifact with preserved EF of 71%. Recommend clinically correlate. 4. Echocardiogram with limited views was technically a difficult study. The EF was 65% without obvious wall motion abnormality. 5. EGD performed by Dr. Mcmullen. DISCHARGE DIAGNOSES: 1. Right lower lobe pneumonia. The patient has been on levofloxacin and will be discharged home on levofloxacin. 2. Chest pain. Patient has been evaluated by Cardiology. She underwent a myocardial perfusion scan as well as echocardiogram. Cardiology did feel like her chest pain was likely more noncardiac, and suggests optimizing her heart rate and switched her over to Cardizem CD as well as metoprolol to twice a day. 3. Nausea and vomiting. Patient was evaluated by Gastroenterology, underwent a normal EKG. She had been receiving Carafate, Prilosec, and was on a bowel regimen with MiraLAX and Dulcolax suppositories as well as Zofran for nausea and vomiting. Follow up with Dr. Akins in 2 to 4 weeks. HOSPITAL COURSE: Briefly, Ms. Lucero is a 68-year-old female with a past medical history of COPD, asthma, atrial fibrillation, and congestive heart failure, resident of [facility]. She was admitted to the hospital on the with complains of epigastric pain that had been going on for 2 weeks with some nausea and vomiting as well as greenish yellow sputum. She also reported not being able to eat or drink anything, and was throwing up. She noted to have some complaint of abdominal pain. She had a cardiology workup that they felt was noncardiac in nature with a perfusion scan and echocardiogram. They did try to optimize her heart rate by switching her Cardizem and metoprolol. She was evaluated by GI, had had a normal EGD. They recommend to continue PPI, antiemetics p.r.n., and follow up with Dr. Akins in 2 to 4 weeks. She was also subsequently found to have pneumonia for which she has been receiving treatment for. She is now stable to return back to the senior living. VITAL SIGNS: At time of discharge, temperature is 98.3 degrees, heart rate 71, respirations 18, blood pressure 115/43, and O2 is 100% on room air. DISCHARGE DIET: Healthy heart. DISCHARGE MEDICATIONS: 1. Trazodone 150 mg p.o. at bedtime. 2. Atrovent nebulizer 0.5 mg p.o. inhaled q.4 hours. 3. Dulera 2 puffs inhaled b.i.d. 4. Lasix 40 mg p.o. b.i.d. 5. Metoprolol 50 mg p.o. b.i.d. 6. Potassium chloride 20 mEq p.o. every morning. 7. Prilosec 40 mg p.o. every morning. 8. Prozac 20 mg p.o. daily. 9. Singulair 10 mg p.o. every morning. 10. Carafate 1 g p.o. 4 times a day. She is stop on 02/14/2019. 11. Synthroid 100 mcg p.o. every morning. 12. Acyclovir 400 mg p.o. daily. 13. Zovirax ointment 5 g topical 5 times a day p.r.n. 14. Ativan 0.5 mg p.o. b.i.d. 15. Eliquis 5 mg p.o. b.i.d. 16. [place] 7.5/325 one tablet p.o. q.8 hours p.r.n. 17. Levofloxacin 750 mg p.o. daily for 10 days. 18. Nitroglycerin 0.4 mg sublingual as directed for chest pain. 19. Xopenex nebulizers 1.25 mg inhaled q.4 hours p.r.n. 20. Zanaflex 4 mg p.o. t.i.d. FOLLOW-UP: Ms. Lucero is being discharged back to [facility]. She is to take all medications as prescribed. She is to follow up with Dr. Akins in 2 to 4 weeks. She can return to the ED or call 911 for any worsening of symptoms. Dictated by NAILA Arredondo for Misbah Page MD Addendum: Patient seen and examined by myself. Agree with NAILA note. It reflects my assessment and plan. Patient is being discharged from hospital to rehab in stable condition Will be seen by GI as scheduled. cc: Misbah Page MD [facility]
== END 2019-02-09 15:28 | DRG 194 ==
LOC: SUPCPDRO → ED 16:57 → SUATTDRO 02-06 00:39 → 3N 02-06 00:39
PROVIDERS: ATTEND Internal Medicine